=== PATIENT | male | born 1975 | race Caucasian/White ===

== ENCOUNTER 2016-11-10 13:31 | Emergency (ER) | payer BC, OTHER ==
[2016-11-10 14:04] VITALS: BP 129/72
[2016-11-10] MEDS ORDERED: Lidocaine 1% 30 ML SDV INJECT ONE (14:24)
[2016-11-10] MEDS ORDERED: Diphtheria,Pertussis(Acell),Tetanus Vaccine 0.5 ML Syringe IM ONE (14:34)
--- NOTE | 2016-11-10 14:58 | EDM.PDOC ---
ED HPI Skin/Rash - General Chief Complaint: Laceration Stated Complaint: CUT FINGER Time Seen by Provider: 11/10/16 13:57 Source: Reports: Patient History Limitations: Reports: No limitations - History of Present Illness INITIAL COMMENTS - FREE TEXT/NARRATIVE: Patient was at home using a grinder carbon plant when the machine grabbed and hit his left index finger. He applied pressure at home and it did stop bleeding. He has not had a recent tetanus booster. He has no other complaints. He is able to fully use his digit. No complaints of numbness or tingling. Symptom Onset Date: 11/10/16 Symptom Onset Time: 13:40 Location, Skin: Reports: upper extremity, left (left 2nd digit) Quality: Reports: Throbbing Severity: mild Known Identified Source: yes Place of Occurrence: home Sick Contact: no Associated Symptoms: Reports: no other symptoms Similar Symptoms Previously: no Recent Medical Care: no - Related Data Allergies Allergy/AdvReac Type Severity Reaction Status Date / Time banana Allergy Swelling Verified 11/10/16 14:04 celery Allergy Swelling Verified 11/10/16 14:04 NSAIDS (Non-Steroidal Allergy Other Verified 11/10/16 14:04 Anti-Inflamma cat dander Allergy Other Uncoded 08/20/15 09:36 Home Meds: Ambulatory Orders Medication Instructions Recorded Confirmed Albuterol [Proventil HFA] 2 puff INH ASDIRECTED 02/25/15 08/20/15 Fluticasone/Salmeterol [Advair 1 puff INH BID 02/25/15 08/20/15 100-50 Diskus] Propranolol [Inderal LA] 60 mg PO DAILY 02/25/15 08/20/15 Escitalopram [Lexapro] 10 mg PO DAILY 08/20/15 08/20/15 Zolpidem Tartrate [Ambien Cr] 12.5 mg PO BEDTIME 08/20/15 08/20/15 Past Medical History Cardiovascular History: Reports: Hypertension Respiratory History: Reports: Asthma Neurological History: Reports: Headaches, chronic Psychiatric History: Reports: Depression Other Dermatologic History: cyst removal - Past Surgical History Other HEENT Surgeries/Procedures: eye socket surgery, jaw surgery Social & Family History - Tobacco Use Smoking Status *Q: Current Every Day Smoker Years of Tobacco use: 20 Packs/Tins Daily: 1 Used Tobacco, but Quit: No - Alcohol Use Days Per Week of Alcohol Use: 0 Number of Drinks Per Day: 0 Total Drinks Per Week: 0 - Recreational Drug Use Recreational Drug Use: No Drug Use in Last 12 Months: No ED ROS GENERAL - Review of Systems Review Of Systems: ROS reveals no pertinent complaints other than HPI. ED EXAM, SKIN/RASH Exam: See Below Exam Limited By: No limitations General Appearance: alert, WD/WN, no apparent distress Extremities: limited range of motion, redness, other (left 2nd digit has a 2.5 linear laceration along the DIP joint, dorsal side, no complaints of numbness/ tingling, full ROM) Neurological: alert, oriented, normal cognition, no motor/sensory deficits Psychiatric: normal affect, normal mood Skin: Wound/incision (2.5 cm lac) ED SKIN PROCEDURES - Laceration/Wound Repair Left Dorsal Finger Lac/wound length in cm: 2.5 Appearance: subcutaneous, mildly contaminated Distal NVT: neuro & vascular intact, no tendon injury Anesthetic type: local Local anesthesia - Lidocaine (Xylocaine): 1% plain Local anesthetic volume: 3cc Skin prep: chlorhexidine (hibiciens) Exploration/Debridement/Repair: wound explored, in a bloodless field, explored to base, minimal debridement, no foreign material found Closed with: sutures Suture size: 4-0 Suture type: prolene, interrupted Repaired with: chromic Drain placement: No Sterile dressing applied: nurse Tetanus status addressed: Yes Complications: No Complication Description: x-ray negative for foreign object Course - Vital Signs Last Recorded V/S: Last Vital Signs Temp 36.1 C 11/10/16 13:45 Pulse 87 11/10/16 13:45 Resp 14 11/10/16 13:45 BP 129/72 11/10/16 13:45 Pulse Ox 96 11/10/16 13:45 - Orders/Labs/Meds Orders: Active Orders 24 hr Category Date Time Status Vaccines to be Administered [RC] PER UNIT ROUTINE Care 11/10/16 14:34 Ordered Fingers Second Digit Lt F1 [CR] Stat Exams 11/10/16 13:57 Ordered Meds: Medications Discontinued Medications Generic Name Dose Route Start Last Admin Trade Name Freq PRN Reason Stop Dose Admin Diphtheria/Tetanus/Acell Pertussis 0.5 ml 11/10/16 14:34 Adacel IM 11/10/16 14:35 .ONCE ONE Lidocaine HCl 30 ml 11/10/16 14:24 Xylocaine-Mpf 1% INJECT 11/10/16 14:25 ONETIME ONE Departure - Departure Time of Disposition: 15:13 Disposition: Home, Self-Care 01 Condition: good Clinical Impression: Finger laceration Instructions: Laceration Care, Adult, [id number], Wound Infection, Easy-to- Read Forms: ED Department Discharge Additional Instructions: Remove sutures in 7-10 days Keep hand out of soaking water. You may shower. No baths, pools, washing dishes, hot tub, natural water bodies until skin is fully healed in about 2 weeks Watch for signs of infection including temperature of greater than 101.5F, your wound is hot to the touch, swollen, has drainage, or has a red streak going up your hand or arm. Please call us with any questions or concerns. - Problem List & Annotations (1) Finger laceration SNOMED Code(s): 186363317 Code(s): S61.219A - LACERATION W/O FB OF UNSP FINGER W/O DAMAGE TO NAIL, INIT Status: Acute Priority: Low Current Visit: Yes Qualifiers: Encounter type: initial encounter Qualified Code(s): S61.219A - Laceration without foreign body of unspecified finger without damage to nail, initial encounter - Problem List Review Problem List Initiated/Reviewed/Updated: Yes - My Orders Last 24 Hours: My Active Orders 11/10/16 13:57 Fingers Second Digit Lt F1 [CR] Stat 11/10/16 14:34 Vaccines to be Administered [RC] PER UNIT ROUTINE - Assessment/Plan Last 24 Hours: My Active Orders 11/10/16 13:57 Fingers Second Digit Lt F1 [CR] Stat 11/10/16 14:34 Vaccines to be Administered [RC] PER UNIT ROUTINE Assessment:: Finger laceration without complication of the left second digit Plan: Remove sutures in 7-10 days Keep hand out of soaking water. You may shower. No baths, pools, washing dishes, hot tub, natural water bodies until skin is fully healed in about 2 weeks Watch for signs of infection including temperature of greater than 101.5F, your wound is hot to the touch, swollen, has drainage, or has a red streak going up your hand or arm. Please call us with any questions or concerns.
== END 2016-11-10 15:08 | disposition home or self-care (01) ==
LOC: VM.ED 13:31
DX: S61.211A Laceration without foreign body of left index finger without damage to nail, initial encounter (principal); W45.8XXA Other foreign body or object entering through skin, initial encounter; Z91.018 Allergy to other foods; Z88.8 Allergy status to other drugs, medicaments and biological substances; Z79.899 Other long term (current) drug therapy; F17.210 Nicotine dependence, cigarettes, uncomplicated
CPT/HCPCS: 12001; 73140-F1; 90471; 90715; 99283